=== PATIENT | female | born 1945 | race Caucasian/White ===

== ENCOUNTER → 2016-10-09 | Outpatient (CLI) | payer MEDICARE, BC ==
[~2016-10-09] MED LIST: CHLORTHALIDONE50 MG PO; DIAZEPAM2 MG PO; K-DUR20 MEQ PO; LASIX20 MG PO; LEVAQUIN500 MG PO; LIPITOR20 MG PO; LIPITOR40 MG PO; LISINOPRIL AND1 TA1 PO; LISINOPRIL/HCTZ1 TA3 FT; LISINOPRIL20 MG PO; LYRICA50 MG PO; LYRICA75 MG PO; MECLIZINE HYDRO25 MG PO; METFORMIN 500M500 M1 PO; NAPROSYN 500MG500 MG PO; NORCO 325 MG-51 TAB PO; ZANTAC 150150 MG PO; ZOFRAN4 MG PO
--- NOTE | 2016-10-09 16:01 | RADIOLOGY REPORT PS360 ---
US PELVIS-TRANSVAGINAL ONLY HISTORY: POST MENOPAUSAL BLEEDING ORDERING PHYSICIAN: João Crook MD PATIENT AGE: 71 years COMPARISON: None FINDINGS: Uterus measures 7 x 3.4 x 4.8 cm with a combined endometrial thickness of 4 mm. A small area of heterogeneous echogenicity is noted along the posterior aspect of the uterus at the body of the uterus area measuring 13 x 9 mm and may represent a small fibroid. Left ovary is 2 x 1.8 cm. Right ovary is 1.4 x 1.5 cm. Small focus of increased echogenicity noted along the superior fundus and could be due to postsurgical change. No cul-de-sac fluid evident. IMPRESSION: 1. Possible small uterine fibroid at 13 mm along the posterior aspect of the body the uterus. 2. Endometrium has an unremarkable appearance as do the ovaries
== END ==
LOC: RAD 13:29
DX: N95.0 Postmenopausal bleeding (principal)

== ENCOUNTER → 2017-02-02 | Outpatient (CLI) | payer MEDICARE, BC ==
--- NOTE | 2017-02-03 09:45 | RADIOLOGY REPORT PS360 ---
CT CHEST W/O CONTRAST HISTORY: Right upper lobe nodule, abnormal chest x-ray, solitary pulmonary nodule ABNORMAL CXR ORDERING PHYSICIAN: Julian Acevedo MD PATIENT AGE: 71 years TECHNIQUE: Helical acquisition obtainedwithout contrast.. Axial, sagittal, and coronal reformatted images are generated and reviewed. COMPARISON: Radiograph of 01/21/2017 FINDINGS: Low density changes are present in the left lobe of the thyroid gland measuring 2 x 1 cm and may be better evaluated with ultrasound. Small nodes within the mediastinum. Calcified mediastinal nodes are present and there are calcified nodes in the tulio. No mediastinal mass or adenopathy. There are coronary artery calcifications. Recent radiograph demonstrated a nodular opacity overlying the right upper lobe medially. There are no suspicious pulmonary nodules in this region. There is asymmetric prominent calcification of the costochondral junction of the first rib accounts for the radiographic abnormality. There are few scattered areas of pulmonary fibrotic changes. No suspicious pulmonary nodules or infiltrates are evident. No effusions. Upper abdominal images are unremarkable. No acute bony anomalies. IMPRESSION: 1. Nodular opacity on the chest x-ray corresponds to costochondral calcifications. 2. No acute finding. 3. Scattered mild fibrotic changes with evidence of old granulomatous disease. 4. Coronary artery disease
== END ==
LOC: RAD 12:46
DX: R91.8 Other nonspecific abnormal finding of lung field (principal)